=== PATIENT | female | born 1955 | race Two or more races ===

== ENCOUNTER 2023-06-20 10:48 | Emergency (ER) | payer MEDICARE, MEDICAID, SELFPAY ==
[2023-06-20 10:52] VITALS: BP 138/77; PULSE 78; RESP 18; TEMP 36.5; O2SAT 98; BMI 32.3
--- NOTE | 2023-06-20 11:02 | XR_ITS ---
The [address] [address] Patient Name: CHOLO BEEBE MRN: [id number] date: 1955 Sex: F Assigned Patient Location: ER Current Patient Location: ER Accession/Order Number: [id number] Exam Date: 06/20/2023 11:10 Report Date: 06/20/2023 11:44 At the request of: ANTONIO HAWTHORNE Procedure: XR wrist LT min 3V EXAM: XR wrist LT min 3V INDICATION: fall. COMPARISON: None. TECHNIQUE: Left wrist, 3 views FINDINGS: Nondisplaced mildly impacted comminuted intra-articular fracture of the distal radius. Well-corticated ossicle adjacent to the ulnar styloid, possibly related to remote injury. Soft tissue swelling about the wrist. XR/XR wrist LT min 3V IMPRESSION: Acute mildly impacted comminuted intra-articular fracture of the distal radius. Electronically authenticated by: KENNY BAKER Date: 06/20/2023 11:44
--- NOTE | 2023-06-20 11:11 | ED.UPPEXIN1 ---
HPI - Extremity Injury (Upper) General Chief Complaint: Extremity Injury, Upper Stated Complaint: left wrist pain due to a fall Time Seen by Provider: 06/20/23 10:54 Source: patient Mode of arrival: walk-in History of Present Illness HPI narrative: 67-year-old female presents for left wrist pain. She fell and hurt her wrist. No other injury. No pain in the hand or elbow. The pain is moderate and worse when she moves it. Related Data Home Medications Medication Instructions Recorded Confirmed albuterol sulfate 90 mcg/actuation 1 inh inhalation Q6H PRN shortness 06/20/23 06/20/23 aerosol inhaler (Ventolin HFA) of breath or wheezing bupropion HCl 300 mg 24 hr tablet, 300 mg PO DAILY 06/20/23 06/20/23 extended release diltiazem HCl 240 mg 240 mg PO QAM 06/20/23 06/20/23 capsule,extended release 24 hr dulaglutide 0.75 mg/0.5 mL 0.75 mg subcut QWEEK 06/20/23 06/20/23 subcutaneous pen injector (Trulicity) estradiol 2 mg tablet 2 mg PO DAILY 06/20/23 06/20/23 fluoxetine 40 mg capsule 40 mg PO DAILY 06/20/23 06/20/23 gabapentin 300 mg capsule 600 mg PO BID 06/20/23 06/20/23 levothyroxine 50 mcg tablet 50 mcg PO DAILY 06/20/23 06/20/23 metformin 500 mg tablet 500 mg PO TIDWMEAL 06/20/23 06/20/23 montelukast 10 mg tablet 10 mg PO BID 06/20/23 06/20/23 omeprazole 20 mg capsule,delayed 20 mg PO DAILY 06/20/23 06/20/23 release rosuvastatin 20 mg tablet (Crestor) 20 mg PO QPM 06/20/23 06/20/23 Previous Rx's Medication Instructions Recorded tramadol 50 mg tablet 50 mg PO Q6H PRN pain #20 tabs 06/20/23 Allergies Allergy/AdvReac Type Severity Reaction Status Date / Time lisinopril Allergy Severe Verified 06/20/23 10:57 morphine Allergy Severe Verified 06/20/23 10:57 Review of Systems ROS Narrative A ten point review of systems is negative except as noted above. Exam Narrative Exam Narrative: Nurses note and vital signs reviewed and patient is not hypoxic. General: The patient appears well and in no apparent distress. Patient is resting comfortably on cart. Skin: Warm, dry, no pallor noted. There is no rash noted. Head: Normocephalic, atraumatic Eye: Normal conjunctiva, no drainage Ears, Nose, Mouth, and Throat: oral mucosa is moist. Nares patent. Cardiovascular: Regular Rate and Rhythm Respiratory: Patient is in no distress, no accessory muscle use, lungs are clear to auscultation, no wheezing, rales or rhonchi Back: non-tender GI: nontender Musculoskeletal: left wrist show some mild swelling. Skin intact. Mild tenderness present. Fingers have full range of motion and the elbow is nontender. Neurological: A&O, normal speech Psychiatric: Cooperative Constitutional Vital Signs, click to edit/add: Last Vital Signs Temp 97.7 F 06/20/23 10:52 Pulse 78 06/20/23 10:52 Resp 18 06/20/23 10:52 BP 138/77 06/20/23 10:52 Pulse Ox 98 06/20/23 10:52 O2 Del Method Room Air 06/20/23 10:52 Course Vital Signs Vital signs: Vital Signs Temperature 97.7 F 06/20/23 10:52 Pulse Rate 78 06/20/23 10:52 Respiratory Rate 18 06/20/23 10:52 Blood Pressure 138/77 06/20/23 10:52 Pulse Oximetry 98 06/20/23 10:52 Oxygen Delivery Method Room Air 06/20/23 10:52 Temperature 97.7 F 06/20/23 10:52 Pulse Rate 78 06/20/23 10:52 Respiratory Rate 18 06/20/23 10:52 Blood Pressure 138/77 06/20/23 10:52 Pulse Oximetry 98 06/20/23 10:52 Oxygen Delivery Method Room Air 06/20/23 10:52 MDM - Extremity Injury (Upper) MDM Narrative Medical decision making narrative: distal radius fracture identified, intra-articular. Splint and sling applied by me, application checked by me and found be appropriate, she is neurovascularly intact. She has a preferred orthopedist with whom she'll follow-up. Treatment diagnosis and follow-up were discussed with the patient. Differential Diagnosis Differential diagnosis: Likely sprain and strain of wrist and fracture of wrist Imaging Data wrist x-ray: Radiologist's impression: Procedure: XR wrist LT min 3V EXAM: XR wrist LT min 3V INDICATION: fall. COMPARISON: None. TECHNIQUE: Left wrist, 3 views FINDINGS: Nondisplaced mildly impacted comminuted intra-articular fracture of the distal radius. Well-corticated ossicle adjacent to the ulnar styloid, possibly related to remote injury. Soft tissue swelling about the wrist. IMPRESSION: Acute mildly impacted comminuted intra-articular fracture of the distal radius. Electronically authenticated by: KENNY BAKER Date: 06/20/2023 11:44 Discharge Plan Discharge Chief Complaint: Extremity Injury, Upper Clinical Impression: Fracture of wrist Patient Disposition: Home, Self-Care Time of Disposition Decision: 11:54 Condition: Good Mode of Transportation: Private Vehicle Prescriptions / Home Meds: New tramadol 50 mg tablet 50 mg PO Q6H PRN (Reason: pain) Qty: 20 0RF No Action bupropion HCl 300 mg tablet extended release 24 hr 300 mg PO DAILY diltiazem HCl 240 mg capsule,extended release 24hr 240 mg PO QAM Trulicity 0.75 mg/0.5 mL pen injector 0.75 mg SUBCUT QWEEK estradiol 2 mg tablet 2 mg PO DAILY fluoxetine 40 mg capsule 40 mg PO DAILY gabapentin 300 mg capsule 600 mg PO BID levothyroxine 50 mcg tablet 50 mcg PO DAILY metformin 500 mg tablet 500 mg PO TIDWMEAL montelukast 10 mg tablet 10 mg PO BID omeprazole 20 mg capsule,delayed release(DR/EC) 20 mg PO DAILY rosuvastatin [Crestor] 20 mg tablet 20 mg PO QPM albuterol sulfate [Ventolin HFA] 90 mcg/actuation HFA aerosol inhaler 1 inh inhalation Q6H PRN (Reason: shortness of breath or wheezing) Instructions: Wrist Fracture in Adults (ED) Additional Instructions: follow-up with Dr. Diego Stand Alone Forms: Portal Instructions Referrals: EFRAIN HANDLEY [Primary Care Provider] - 1 week
== END 2023-06-20 12:10 | disposition home or self-care (01) ==
PROVIDERS: Emergency Provider Emergency Medicine; PCP Family Medicine
DX: S52.572A Other intraarticular fracture of lower end of left radius, initial encounter for closed fracture (principal); W19.XXXA Unspecified fall, initial encounter; Z79.899 Other long term (current) drug therapy; Z79.85 Long-term (current) use of injectable non-insulin antidiabetic drugs; Z79.84 Long term (current) use of oral hypoglycemic drugs
CPT/HCPCS: 29125; 73110; 99283